=== PATIENT | female | born 1955 | race Caucasian/White ===

== ENCOUNTER 2016-07-20 09:19 | Day surgery (SDC) | payer OTHER ==
[~2016-07-20] VITALS: Ht 121.9 cm; Wt 60.2 kg
[2016-07-20 11:07] VITALS: Ht 121.9 cm; Wt 60.2 kg
[2016-07-20] MEDS ORDERED: METOPROLOL (11:12)
[2016-07-20] MEDS ORDERED: ATORVASTATIN (11:12)
[2016-07-20] MEDS ORDERED: ALBUTEROL INHALER (11:12)
[2016-07-20] MEDS ORDERED: PROPOFOL 20 ML ONE (11:20)
[2016-07-20] MEDS ORDERED: FENTAnyl 50 MCG/ML VIAL ONE (11:20)
[2016-07-20] MEDS ORDERED: MIDAZOLAM 1 MG/ML 2 ML INJ ONE (11:20)
[2016-07-20] MEDS ORDERED: LIDOCAINE 2% (SDV) 5 ML INJ ONE (11:20)
[2016-07-20 11:25] VITALS: BP 136/87; PULSE 70; RESP 28
[2016-07-20 12:20] VITALS: BP 128/67; PULSE 64; RESP 18
--- NOTE | 2016-07-20 14:31 | GILP ---
DATE OF PROCEDURE: NAME OF PROCEDURE: Colonoscopy. SURGEON: Suzy Mendoza MD PREOPERATIVE DIAGNOSIS: Screening colonoscopy. POSTOPERATIVE DIAGNOSES: 1. Colonoscopy all the way to the cecum. 2. Internal hemorrhoids. 3. No colon neoplasm was identified. INDICATION FOR THE PROCEDURE: Ms. Mary Beth Pérez is a 60-year-old female patient who was sche duled for a screening colonoscopy. The procedure and possible complications are well explained to the patient, she understood and conse nted to the procedure. DESCRIPTION OF PROCEDURE: Under the influence of anesthesia, the colonoscope was carefully introduc ed in the rectum and under direct vision, it was advanced all the way to the cecum. FINDINGS: The patient had internal hemorrhoids. No colon neoplasm was identified. She tolerated the procedure very well and there was no complication from the procedure. At the end of the procedures, she was awake with stable vital signs, and she was discharged home to the care of her family. IMPRESSION: 1. Colonoscopy all the way to the cecum. 2. Internal hemorrhoids. 3. No colon neoplasm was identified. PLAN: Next screening colonoscopy in 10 years. Dictated By: SUZY HOUSTON/MARIALUISA Conf#: [id number] DID#: [id number]
== END 2016-07-20 12:06 | disposition home or self-care (01) ==
LOC: GIL 09:19
PROVIDERS: ATTEND Internal Medicine Gastroenterology
DX: Z12.11 Encounter for screening for malignant neoplasm of colon (principal); K64.8 Other hemorrhoids; I10 Essential (primary) hypertension; E78.5 Hyperlipidemia, unspecified; J45.909 Unspecified asthma, uncomplicated
CPT/HCPCS: 45378; J2250; J3010; Z7610

== ENCOUNTER 2016-07-27 11:26 | Emergency (ER) | payer OTHER ==
[~2016-07-27] VITALS: Ht 157.5 cm; Wt 61.5 kg
[~2016-07-27 11:26] MED LIST: ALBUTEROL INHALER; ATORVASTATIN; METOPROLOL
[2016-07-27 11:48] VITALS: Ht 157.5 cm; Wt 61.5 kg
[2016-07-27] MEDS ORDERED: BENZ100C70 PO (13:23)
[2016-07-27] MEDS ORDERED: PROM5SYR2 PO (13:23)
--- NOTE | 2016-07-27 14:10 | ERD ---
DATE OF SERVICE: HISTORY OF PRESENT ILLNESS: The patient is a 61-year-old female coming in complaining of a cough wi th phlegm for 4 days. Patient states she has had some mild rib pain secondary to constant coughing. No headaches, no shortness of breath. She has only used [id number] cough medication with no alleviation of symptoms. She has not had any shortness of breath, no hemoptysis, no pleuritic ches t pain. She has a history of bronchitis in the past. PAST MEDICAL HISTORY: Hypercholesterolemia, hypertension. ALLERGIES: ADVIL. SURGICAL HISTORY: Hernia, hysterectomy, appendectomy. SOCIAL HISTORY: Denies. REVIEW OF SYSTEMS: A 12-point review of systems was done, refer to HPI for positives, all other sys tems negative. PHYSICAL EXAMINATION VITAL SIGNS: Temperature 98.4, pulse 77, blood pressure 114/74, respiratory rate 20, O2 saturation 98% on room air. Pain intensity is 6/10. GENERAL: Patient is well-appearing, well-nourished, no acute distress. HEENT: Atraumatic. Conjunctivae are pink. Pupils equal, round, and reactive to light. There is no s cleral icterus. Tympanic membranes clear bilaterally. Oropharynx clear. No nystagmus or photophobia . CHEST: Clear to auscultation bilaterally. There are no rales, wheezes or rhonchi. HEART: Regular rate and rhythm. No murmurs, clicks, rubs or gallops. No S3 or S4. ABDOMEN: Soft, nontender and nondistended. Good bowel sounds. No rebound or guarding. No gross tori tonitis. No gross organomegaly or masses. No Correa sign or McBurney point tenderness. SKIN: There is no apparent rash or petechia. The skin is warm and dry. DIAGNOSIS: Cough, likely viral. MEDICAL DECISION MAKING: I have low suspicion for pneumonia, low suspicion for respiratory distress or hypoxia, low suspicion for PE. Patient's exam is likely associated with viral cough. Vitals ar e stable, oxygen saturation 98% on room air. Patient does not have abnormal breath sounds heard on auscultation. DISCHARGE: The patient is discharged stable. Patient given a prescription for Tessalon and Phenerg an with codeine and told to follow up with primary care within 1 to 2 days for reevaluation. The pa tient was told if symptoms progress or worsen to return to the ER. All other questions answered dis charge. Discharge summary given at the time of departure. Patient understood and complied with gavin n. Dictated By: JILLIAN MIDDLETON for RAS MORALEZ/MARIALUISA Conf#: [id number] DID#: [id number]
== END 2016-07-27 13:43 | disposition home or self-care (01) ==
LOC: FTE 11:26
DX: R05 Cough (principal); I10 Essential (primary) hypertension
CPT/HCPCS: 99284